=== PATIENT | male | born 1935 | race Two or more races ===

== ENCOUNTER 2020-11-13 22:17 | Emergency (ER) | payer OTHER, MEDICARE ==
[~2020-11-13] VITALS: Ht 172.7 cm; Wt 77.1 kg
[2020-11-13 22:17] VITALS: BP_SYST 195
--- NOTE | 2020-11-13 22:17 | NUR ---
Placed in room 02 . Placed on property assessment monitor, blood pressure machine and pulse oximeter. To gown for exam. Side rails up.
--- NOTE | 2020-11-13 22:18 | NUR ---
Patient present to ED BIB S[address] from home for hyperglycemia and hypertension sent by . Patient reports has not been taking his Diabetic or hypertension medications x 2 weeks. Reports having polyuria, polydipsia. Denies any blurred vision, headache, abdominal pain, nausea, vomiting, diarrhea, chest pain or shortness of breath. denies any pain at this time. AOx4 Addendum: 11/13/20 at 2310 by SDEDCJM Arrived with 18 G placed by EMS on LAC with 500 ml NS bolus given. No signs of infilitration. Initial Accucheck in ER is 460.
--- NOTE | 2020-11-13 23:01 | NUR ---
ER at bedside examining patient.
[2020-11-13] MEDS ORDERED: ENALAPRILAT DIHYDRATE 1.25 MG/ML VIAL IVP ONE (23:15)
[2020-11-13] MEDS ORDERED: NACL 0.9% 1,000 ML IV ONE (23:15)
[2020-11-13 23:43] LABS: BASOPHILS # (AUTO) 0.1 K/uL (0.0-0.2); BASOPHILS % (AUTO) 1.4 % (0.0-2.0); EOSINOPHILS # (AUTO) 0.4 K/uL (0.0-0.4); EOSINOPHILS % (AUTO) 6.4 % (0.0-4.0); HEMATOCRIT 39.1 % (36-54); HEMOGLOBIN 12.7 g/dL (14.0-18.0); LYMPHOCYTES # (AUTO) 1.4 K/uL (1.0-5.5); LYMPHOCYTES % (AUTO) 23.7 % (20.5-51.5); MEAN CORPUSCULAR HEMOGLOBIN 29 pg (27-31); MEAN CORPUSCULAR HGB CONC 33 % (32-36); MEAN CORPUSCULAR VOLUME 90 fL (79.0-98.0); MONOCYTES # (AUTO) 0.5 K/uL (0.0-1.0); MONOCYTES % (AUTO) 8.3 % (1.7-9.3); NEUTROPHILS # (AUTO) 3.5 K/uL (1.8-7.7); NEUTROPHILS % (AUTO) 60.2 % (40.0-70.0); PLATELET COUNT (AUTO) 292 K/uL (130-430); RED BLOOD CELL COUNT(AUTO) 4.35 MIL/uL (4.2-6.2); RED CELL DISTRIBUTION WIDTH 14.4 % (9.0-15.0); WHITE BLOOD COUNT (AUTO) 5.9 K/uL (4.8-10.8)
--- NOTE | 2020-11-14 00:04 | NUR ---
notified patient's bp 211/113. New orders received and carried out. Patient tolerated well. Will continue to monitor.
[2020-11-14 00:19] LABS: BILIRUBIN,URINE NEGATIVE (NEGATIVE); CLARITY/URINE CLEAR (CLEAR); COLOR,URINE YELLOW (YELLOW); GLUCOSE,URINE 3+ (NEGATIVE); KETONES,URINE 1+ (NEGATIVE); LEUKOCYTE ESTERASE ,URINE NEGATIVE (NEGATIVE); NITRITE, URINE NEGATIVE (NEGATIVE); PH,URINE 6.5 (5.0-8.0); PROTEIN URINE TRACE (NEGATIVE); UROBILINOGEN,URINE 0.2 (0.2-1.0)
[2020-11-14 00:22] LABS: ANION GAP 7 (5-15); CALCIUM 8.5 mg/dL (8.4-11.0); CHLORIDE 97 mmol/L (98-107); CREATININE 1.06 mg/dL (0.55-1.30); SODIUM SERUM 132 mmol/L (136-145); UREA NITROGEN, BLOOD 19 mg/dL (8-21)
[2020-11-14 00:27] LABS: ALANINE AMINOTRANSFERASE 29 U/L (12-78); ASPARTATE AMINOTRANSFERASE 20 U/L (10-37); TOTAL BILIRUBIN 0.3 mg/dL (0.0-1.0)
[2020-11-14] MEDS ORDERED: hydrALAZINE HCL 20 MG/ML VIAL IVP ONE (00:30)
[2020-11-14 00:31] LABS: BLOOD, URINE TRACE (NEGATIVE)
[2020-11-14 00:33] LABS: GLUCOSE 442 mg/dL (70-99)
[2020-11-14 01:01] LABS: BACTERIA,URINE FEW /HPF (None Seen); WBC,URINE 0-3 /HPF (0-3)
--- NOTE | 2020-11-14 01:06 | NUR ---
Patient resting quietly. No acute distress noted. Vital signs within normal range.
[2020-11-14] MEDS ORDERED: INSULIN REGULAR, HUMAN 10 UNITS/0.1 ML INJ IVP ONE (01:15)
[2020-11-14] MEDS ORDERED: INSULIN REGULAR, HUMAN 10 UNITS/0.1 ML INJ ONE (01:21)
[2020-11-14] MEDS ORDERED: CLON-433 PO (02:17)
[2020-11-14] MEDS ORDERED: LISI40TA13 PO (02:17)
--- NOTE | 2020-11-14 02:18 | NUR ---
at bedside. VSS. Patient awaiting discharge.
[2020-11-14 02:32] VITALS: BP_SYST 165
--- NOTE | 2020-11-14 02:32 | NUR ---
Patient given written and verbal discharge instructions and verbalizes understanding. ER MD discussed with patient the results and treatment provided. Patient in stable condition. ID arm band removed. IV catheter removed intact and dressing applied, no active bleeding. Rx of Clonidine and lisinopril given. Patient educated on pain management and to follow up with PMD. Pain Scale 0/10 Opportunity for questions provided and answered. Medication side effect fact sheet provided.
== END 2020-11-14 02:32 | disposition home or self-care (01) ==
LOC: SED 22:17
DX: E11.65 Type 2 diabetes mellitus with hyperglycemia (principal); I10 Essential (primary) hypertension
CPT/HCPCS: 36415; 80053; 81000; 82962; 85025; 93005; 96361; 96374; 96375; 99285; J0360; J1815; J7030

== ENCOUNTER 2022-03-05 09:19 | Outpatient (CLI) | payer OTHER, MEDICARE ==
[~2022-03-05 09:19] MED LIST: CLON-433 PO; LISI40TA13 PO
== END 2022-03-05 16:29 | disposition home or self-care (01) ==
LOC: SRD 09:19
PROVIDERS: ATTEND Family Medicine
DX: A15.8 Other respiratory tuberculosis (principal)
CPT/HCPCS: 71046-TC

== ENCOUNTER 2022-05-03 18:14 | Inpatient (IN) | payer OTHER, MEDICARE ==
[~2022-05-03] VITALS: Ht 160 cm; Wt 65.8 kg
[2022-05-03 18:30] VITALS: BP_SYST 142
[2022-05-03] MEDS ORDERED: NACL 0.9% 1,000 ML IV ONE ×2 (19:45→20:30)
[2022-05-03 19:47] LABS: BASOPHILS # (AUTO) 0.1 K/uL (0.0-0.2); BASOPHILS % (AUTO) 1.3 % (0.0-2.0); EOSINOPHILS # (AUTO) 0.2 K/uL (0.0-0.4); EOSINOPHILS % (AUTO) 4.7 % (0.0-4.0); HEMATOCRIT 38.5 % (36-54); HEMOGLOBIN 12.9 g/dL (14.0-18.0); LYMPHOCYTES % (AUTO) 23.7 % (20.5-51.5); MEAN CORPUSCULAR HEMOGLOBIN 31 pg (27-31); MEAN CORPUSCULAR HGB CONC 34 % (32-36); MEAN CORPUSCULAR VOLUME 92 fL (79.0-98.0); MONOCYTES # (AUTO) 0.3 K/uL (0.0-1.0); MONOCYTES % (AUTO) 7.6 % (1.7-9.3); NEUTROPHILS # (AUTO) 2.8 K/uL (1.8-7.7); NEUTROPHILS % (AUTO) 62.7 % (40.0-70.0); PLATELET COUNT (AUTO) 316 K/uL (130-430); RED BLOOD CELL COUNT(AUTO) 4.21 MIL/uL (4.2-6.2); RED CELL DISTRIBUTION WIDTH 13.9 % (9.0-15.0); WHITE BLOOD COUNT (AUTO) 4.4 K/uL (4.8-10.8)
[2022-05-03 20:10] LABS: ANION GAP 6 (5-15); CHLORIDE 95 mmol/L (98-107); CREATININE 1.19 mg/dL (0.55-1.30); UREA NITROGEN, BLOOD 26 mg/dL (8-21)
[2022-05-03 20:13] LABS: GLUCOSE 605 mg/dL (70-99)
[2022-05-03 20:14] LABS: ACETONE, SERUM NEGATIVE (NEGATIVE)
--- NOTE | 2022-05-03 20:19 | NUR ---
pt is here becuase his the is concerned that pt blood pressure is high in 170/89 at home on thrusday and acc showed at home 509. When pt is here at the er the acc is 605. pt is confused and incontineince. at the bedside.
--- NOTE | 2022-05-03 20:19 | NUR ---
Accucheck: 607
--- NOTE | 2022-05-03 20:29 | NUR ---
COVID SAMPLE COLLECTED AND SENT TO LAB
[2022-05-03] MEDS ORDERED: INSULIN REGULAR, HUMAN 10 UNITS/0.1 ML, 3 ML VIAL IVP ONE (20:30)
[2022-05-03] MEDS ORDERED: INSU100I26 SQ (20:32)
[2022-05-03 20:33] LABS: TOTAL BILIRUBIN 0.5 mg/dL (0.0-1.0)
[2022-05-03] MEDS ORDERED: CYAN100T44 PO (20:33)
[2022-05-03] MEDS ORDERED: NOR10 PO (20:33)
[2022-05-03] MEDS ORDERED: LIP40 PO (20:33)
[2022-05-03] MEDS ORDERED: LISI40TA13 PO (20:33)
[2022-05-03] MEDS ORDERED: GLIM4TAB37 PO (20:33)
[2022-05-03 20:34] LABS: ALANINE AMINOTRANSFERASE 58 U/L (12-78); ALBUMIN 3.5 g/dL (3.4-4.8); ASPARTATE AMINOTRANSFERASE 25 U/L (10-37)
[2022-05-03 20:35] LABS: LIPASE 54 U/L (73-393)
[2022-05-03 20:40] LABS: BILIRUBIN,URINE NEGATIVE (NEGATIVE); CLARITY/URINE CLEAR (CLEAR); COLOR,URINE YELLOW (YELLOW); GLUCOSE,URINE 3+ (NEGATIVE); KETONES,URINE NEGATIVE (NEGATIVE); LEUKOCYTE ESTERASE ,URINE NEGATIVE (NEGATIVE); NITRITE, URINE NEGATIVE (NEGATIVE); PROTEIN URINE TRACE (NEGATIVE); UROBILINOGEN,URINE 0.2 (0.2-1.0)
[2022-05-03 20:56] LABS: BLOOD, URINE TRACE (NEGATIVE)
[2022-05-03 20:57] LABS: BACTERIA,URINE FEW /HPF (None Seen); MUCUS,URINE None Seen /LPF (None Seen); RBC,URINE 0-3 /HPF (0-3); WBC,URINE 0-3 /HPF (0-3)
--- NOTE | 2022-05-04 | NUR ---
patient blood sugar is 182
--- NOTE | 2022-05-04 00:06 | NUR ---
Admit bed requested Patient will be admitted to care of Dr. OLIVEROS. Admitted to MED SURG unit. Diagnosis DIABETIC AND GENERALIZED WEAKNESS Inpatient (Yes or No) YES Observation (Yes or No) N Orientation concerns or request close to nursing station (Yes or No) N Covid Status NEGATIVE On vent or bipap N Isolation requirements N Needs a sitter N From Home (Yes or if No enter name of facility) HOME Requires Dialysis (Yes or No) N Med Rec Completed (Yes of No) Y
[2022-05-04 01:10] VITALS: BP_SYST 144
--- NOTE | 2022-05-04 01:10 | NUR ---
RECEIVED PATIENT TO ROOM 112, BED B, FROM EMERGENCY ROOM VIA GURNEY, ESCORTED BY DOWNSTREAM BIOMANUFACTURING TECHNICIAN. RECEIVED REPORT, ASSUMED CARE, AND STARTED ASSESSMENT.
--- NOTE | 2022-05-04 02:02 | NUR ---
Patient will be admitted to care of [facility] . Admitted to tele unit. Will go to room 112. Belongings list completed. Complete and up to date summary report printed. SBAR report to be given at bedside with opportunity for questions.
--- NOTE | 2022-05-04 07:28 | NUR ---
REPORT GIVEN TO RAVI MAYS, CARE, AND CARE WAS TURNED OVER TO HER.
[2022-05-04] MEDS: amLODIPine BESYLATE 10 MG TABLET PO SCH (10:09)
[2022-05-04] MEDS: lisinopriL 20 MG TABLET PO SCH (10:10)
[2022-05-04] MEDS: GLIMEPIRIDE 2 MG TABLET PO SCH (10:12)
[2022-05-04 11:08] VITALS: BP_SYST 135
--- NOTE | 2022-05-04 11:11 | NUR ---
CONSULTATION: REASON FOR CONSULT: HYPERTENSION CONSULTING PHYSICIAN: Harish OLIVEROS ORDERED BY: Dominic OLIVEROS SPOKE WITH KAYLIN MISHRA AND IS AWARE OF CONSULT.
--- NOTE | 2022-05-04 11:40 | NUR ---
resumed care after drift miner Denia Garcias sent home mid-shift. pt alert, oriented x3 at this time, no distress. ambulating with steady gait in room at bedside. denies pain, denies sob.skin warm and dry. call light in reach. room across from nursing station. vitals stable.
--- NOTE | 2022-05-04 11:42 | NUR ---
PATIENT RECEIVED RESTING IN BED IN NO APPARENT DISTRESS OR DISCOMFORT. ABLE TO MAKE NEEDS KNOWN. COMPLIANT WITH TAKING ALL MEDS. NO C/O ANY PAIN, NO CHEST PAIN, NO ABD PAIN NO SOB AT THIS TIME. CONTINUE TO MONITOR AND OBSERVE. CONTINUE WITH PRESENT CARE AND ORDERS PER MD . TOO ACHIEVE EXPECTED GOALS AND OUTCOMES.
--- NOTE | 2022-05-04 12:25 | NUR ---
CM noted order for DC plan for SNF. Spoke with pt Tom who is requesting for SNF placement in [facility]. Pt is agreeable for SNF. will send out referral packets Addendum: 05/04/22 at 1236 by Jessie Joseph RN patient states she doesnt need a walker for her as he already has one
--- NOTE | 2022-05-04 12:36 | NUR ---
CM faxed DC planning referral to [facility]#[phone]. will follow up
[2022-05-04] MEDS ORDERED: METOPROLOL SUCCINATE 25 MG TAB.SR.24H (TOPROL XL) PO ONE (15:00)
[2022-05-04] MEDS: INSULIN REGULAR, HUMAN 100 UNITS/ML, 3 ML VIAL (humuLIN R) SUBCUT PRN ×2 (15:44→20:41)
[2022-05-04 16:00] VITALS: BP_SYST 138
--- NOTE | 2022-05-04 19:30 | NUR ---
OPENING NOTE PT LYING IN BED AND EYES CLOSED. BREATHING EVEN AND NONLABORED. NO S/S OF DISTRESS OR PAIN REPORTED. SAFETY CHECKS IN PLACE. CALL LIGHT IN REACH.
[2022-05-04 20:00] VITALS: BP_SYST 154
[2022-05-04] MEDS: ATORVASTATIN 20 MG TABLET PO SCH (20:39)
[2022-05-04] MEDS: INSULIN GLARGINE 100 UNITS/ML, 10 ML VIAL SUBCUT SCH (20:40)
[2022-05-04 22:29] VITALS: BP_SYST 154
--- NOTE | 2022-05-04 23:46 | NUR ---
PT REFUSED GLUCOSE CHECK PT LYING IN BED. REFUSED GLUCOSE CHECK. BREATHING EVEN AND NONLABORED. NO S/S OF ACUTE DISTRESS OR PAIN. SAFETY CHECKS IN PLACE. CALL LIGHT IN REACH. CONTINUE TO MONITOR
[2022-05-05 00:36] VITALS: BP_SYST 154
--- NOTE | 2022-05-05 01:45 | NUR ---
ROUNDING NOTE PT FOUND AT RESTROOM. URINATED AND WALKED BACK TO HIS BED WITH WALKER. BED LINENS AND GOWN CHANGED. SAFETY CHECKS IN PLACE. BED LOWEST POSITION. CALL LIGHT IN REACH. CONTINUE TO MONITOR
[2022-05-05 05:41] LABS: BASOPHILS % (AUTO) 0.8 % (0.0-2.0); EOSINOPHILS # (AUTO) 0.4 K/uL (0.0-0.4); EOSINOPHILS % (AUTO) 7.7 % (0.0-4.0); HEMATOCRIT 38.3 % (36-54); HEMOGLOBIN 12.9 g/dL (14.0-18.0); LYMPHOCYTES # (AUTO) 2.3 K/uL (1.0-5.5); LYMPHOCYTES % (AUTO) 40.4 % (20.5-51.5); MEAN CORPUSCULAR HEMOGLOBIN 30 pg (27-31); MEAN CORPUSCULAR HGB CONC 34 % (32-36); MEAN CORPUSCULAR VOLUME 89 fL (79.0-98.0); MONOCYTES # (AUTO) 0.5 K/uL (0.0-1.0); MONOCYTES % (AUTO) 9.3 % (1.7-9.3); NEUTROPHILS # (AUTO) 2.3 K/uL (1.8-7.7); NEUTROPHILS % (AUTO) 41.8 % (40.0-70.0); PLATELET COUNT (AUTO) 348 K/uL (130-430); RED CELL DISTRIBUTION WIDTH 13.8 % (9.0-15.0); WHITE BLOOD COUNT (AUTO) 5.6 K/uL (4.8-10.8)
[2022-05-05 05:48] LABS: ANION GAP 10 (5-15); CALCIUM 8.9 mg/dL (8.4-11.0); CHLORIDE 103 mmol/L (98-107); CREATININE 0.94 mg/dL (0.55-1.30); GLUCOSE 103 mg/dL (70-99); THYROID STIMULATING HORMONE 1.36 uIu/mL (0.34-4.82); UREA NITROGEN, BLOOD 21 mg/dL (8-21)
--- NOTE | 2022-05-05 07:26 | NUR ---
CLOSING NOTE PT LYING IN BED AND EYES CLOSED. BREATHING EVEN AND NONLABORED. NO S/S OF DISTRESS OR PAIN REPORTED. SAFETY CHECKS IN PLACE. CALL LIGHT IN REACH. ENDORSED TO DAY SHIFT NURSE
[2022-05-05 08:00] VITALS: BP_SYST 138
[2022-05-05] MEDS: GLIMEPIRIDE 2 MG TABLET PO SCH (08:56)
[2022-05-05] MEDS: METOPROLOL SUCCINATE 25 MG TAB.SR.24H (TOPROL XL) PO SCH (08:56)
[2022-05-05] MEDS: lisinopriL 20 MG TABLET PO SCH (08:57)
[2022-05-05] MEDS: amLODIPine BESYLATE 10 MG TABLET PO SCH (08:57)
--- NOTE | 2022-05-05 10:00 | NUR ---
Patient accepted at [facility]. room 114. updated.
--- NOTE | 2022-05-05 11:06 | NUR ---
CONSULTATION PAGED REASON FOR CONSULTATION: NEW ONSET URINARY INCONTNENCE WAS CONSULT CALLED? Y PERSON WHO WAS NOTIFIED: ANTONIO CONSULTING PHYSICIAN: RULA MELTON MANUFACTURING MAINTENANCE TECHNICIAN SPECIALTY: UROLOGY MANUFACTURING MAINTENANCE TECHNICIAN PHONE NUMBER: [phone] REQUESTING PHYSICIAN: HERMELINDA KATZ
[2022-05-05] MEDS: INSULIN REGULAR, HUMAN 100 UNITS/ML, 3 ML VIAL (humuLIN R) SUBCUT PRN ×2 (11:20→17:38)
[2022-05-05] MEDS: INSULIN GLARGINE 100 UNITS/ML, 10 ML VIAL SUBCUT SCH ×2 (11:22→21:27)
[2022-05-05 11:27] VITALS: BP_SYST 124
--- NOTE | 2022-05-05 12:58 | NUR ---
Dietitian Recommendations * Ordered low CHO (45g) CCHO diet * Encourage good PO intake * Consider continuing to monitor POC BG GS, MPH, RD Please refer to RD Assessment for further details. Thanks! Addendum: 05/05/22 at [address] Amended: Links added.
--- NOTE | 2022-05-05 13:48 | NUR ---
PHYSICAL THERAPY CO-SIGN The Physical Therapy Progress Notes documented by Head Cd Reactor Operator have been reviewed. Reviewed/Co-Signed by: Jaydon Turcios Documentation Done by:ASHANTI HUNT Addendum: 05/05/22 at 1348 by Jaydon Turcios PT Amended: Links added.
[2022-05-05 15:21] VITALS: BP_SYST 126
--- NOTE | 2022-05-05 16:23 | NUR ---
Spoke with Dr Dominic Jack. patient ok DC to SNF today. Patient to go to [facility] room 114. [facility] ETA 6pm. will let RN know to call Dr Jack for discharge order. will place packet on unit with facility and transport details
[2022-05-05] MEDS ORDERED: INSU100V9 SUBCUT ×2 (16:45)
[2022-05-05] MEDS ORDERED: METO-540 PO (16:45)
--- NOTE | 2022-05-05 17:09 | NUR ---
PAGED DR. OLIVEROSA
--- NOTE | 2022-05-05 17:10 | NUR ---
spoke with at bedside who states PABLITO Roman told her pt would stay over night and they would meet to discuss snf placement at 0800 tomorrow. not comfortable with dc to [facility] as she has not seen it nor looked it up online and dc pickup is scheduled for 1800 today. pt's blood sugar labile with result [address] marin
--- NOTE | 2022-05-05 17:36 | NUR ---
spoke with dr marin who states ok to cancel dc today. called and cancelled hot die picker with [facility]
--- NOTE | 2022-05-05 18:21 | NUR ---
spoke with pt's physician Dr Luo. notified of pt's hgbA1c result 11.3 states pt should not have been considered for discharge due to blood sugar out of control states she is in contact with Dr Jack. aware that consult was sent for urology with Dr Wilde and pt seen by fuel distribution system operator Dr Holloway
[2022-05-05] MEDS: ATORVASTATIN 20 MG TABLET PO SCH (21:14)
[2022-05-06] VITALS (7 sets, daily range): BP systolic 103–148
[2022-05-06] MEDS: INSULIN REGULAR, HUMAN 100 UNITS/ML, 3 ML VIAL (humuLIN R) SUBCUT PRN ×3 (06:41→16:50)
--- NOTE | 2022-05-06 07:03 | NUR ---
closing notes pt is resting in a low bed position with call light within pts reach
--- NOTE | 2022-05-06 08:00 | NUR ---
Received patient in bed A/Ox2, respiration even and unlabored, no signs of distress, IV to right forearm patent. Maintain safety precaution, bed in low position
--- NOTE | 2022-05-06 08:32 | NUR ---
CM spoke with in person this morning regarding discharge hold yesterday. states she is ok with [facility]. CM gave her a list of options for SNF in case she doesnt like [facility]. says she is ok for her to discharge today if he is ready. CM gave her a booklet of community resources for finding extra care for her after he goes home from the SNF.
--- NOTE | 2022-05-06 08:35 | NUR ---
Transportation for discharge set up with [facility] [phone]. ETA 1;00 pm today. Will speak to patient RN regarding patient discharge
[2022-05-06] MEDS: GLIMEPIRIDE 2 MG TABLET PO SCH (08:59)
[2022-05-06] MEDS: lisinopriL 20 MG TABLET PO SCH (09:01)
[2022-05-06] MEDS: amLODIPine BESYLATE 10 MG TABLET PO SCH (09:02)
[2022-05-06] MEDS: METOPROLOL SUCCINATE 25 MG TAB.SR.24H (TOPROL XL) PO SCH (09:02)
[2022-05-06] MEDS: INSULIN GLARGINE 100 UNITS/ML, 10 ML VIAL SUBCUT SCH ×2 (09:07→21:00)
--- NOTE | 2022-05-06 10:45 | NUR ---
Neww IV saline lock to left forearm #22g
--- NOTE | 2022-05-06 11:10 | NUR ---
Spoke with Masood Marley, increase Lantus to 15units BID
--- NOTE | 2022-05-06 11:20 | NUR ---
Transportation with [facility] ETA rescheduled for 6pm today. Pt blood sugars unstable. Spoke with pt RAVI Mann to call success coach for diabetic medication adjustments.
--- NOTE | 2022-05-06 11:55 | NUR ---
PHYSICAL THERAPY CO-SIGN The Physical Therapy Progress Notes documented by [employer] Department Head have been reviewed. Reviewed/Co-Signed by: Jaydon Turcios Documentation Done by:ASHANTI HUNT Addendum: 05/06/22 at 1155 by Jaydon Turcios PT Amended: Links added.
[2022-05-06 12:06] LABS: EOSINOPHILS # (AUTO) 0.3 K/uL (0.0-0.4); EOSINOPHILS % (AUTO) 5.7 % (0.0-4.0); HEMATOCRIT 35.7 % (36-54); HEMOGLOBIN 11.9 g/dL (14.0-18.0); LYMPHOCYTES # (AUTO) 1.1 K/uL (1.0-5.5); LYMPHOCYTES % (AUTO) 22.9 % (20.5-51.5); MEAN CORPUSCULAR HEMOGLOBIN 30 pg (27-31); MEAN CORPUSCULAR HGB CONC 33 % (32-36); MEAN CORPUSCULAR VOLUME 91 fL (79.0-98.0); MONOCYTES # (AUTO) 0.4 K/uL (0.0-1.0); MONOCYTES % (AUTO) 7.9 % (1.7-9.3); NEUTROPHILS # (AUTO) 2.9 K/uL (1.8-7.7); NEUTROPHILS % (AUTO) 62.5 % (40.0-70.0); PLATELET COUNT (AUTO) 274 K/uL (130-430); RED BLOOD CELL COUNT(AUTO) 3.95 MIL/uL (4.2-6.2); RED CELL DISTRIBUTION WIDTH 13.9 % (9.0-15.0); WHITE BLOOD COUNT (AUTO) 4.7 K/uL (4.8-10.8)
[2022-05-06 12:11] LABS: ANION GAP 6 (5-15); CALCIUM 8.2 mg/dL (8.4-11.0); CHLORIDE 97 mmol/L (98-107); CREATININE 1.27 mg/dL (0.55-1.30); UREA NITROGEN, BLOOD 26 mg/dL (8-21)
[2022-05-06 12:16] LABS: GLUCOSE 507 mg/dL (70-99)
[2022-05-06] MEDS ORDERED: INSULIN NPH 100 UNITS/ML 10 ML VIAL SUBCUT ONE (12:45)
--- NOTE | 2022-05-06 15:05 | NUR ---
Patient Tom called CM to state that she does not feel comfortable discharging patient tonight. She is aware of patient blood sugars still not stable. will let RN know
[2022-05-06] MEDS: INSULIN Lispro 100 UNITS/ML, 3 ML VIAL (humaLOG) SUBCUT SCH ×2 (16:56→21:00)
--- NOTE | 2022-05-06 16:56 | NUR ---
dr marin spoke with and updatedhisofy of patient blood sugars. received order to hold discharge Addendum: 05/06/22 at 1659 by Debby Amador RN Iman roach
--- NOTE | 2022-05-06 19:00 | NUR ---
Patient in stable condition, continue to stabilizes blood glucose, maintain safety throughout shift, will endorse
--- NOTE | 2022-05-06 21:07 | NUR ---
BG 51MG/dL, JUICE GIVEN WILL RECHECK RECEIVED PT SITTING AT EDGE OF BED, NO DISTRESS NOTED, DENIES PAIN. AAOX3, O2 SAT 98% ON RA, LUNG SOUNDS DIMINISHED, IV TO LT FA SITE CDI. EDEMA NOTED TO BLE. Addendum: 05/06/22 at 2329 by Dave Heller RN RN 2130: BG 89MG/dL Addendum: 05/07/22 at 0637 by Dave Heller RN RN 0600: BG 50MG/dL GAVE JUICE 0630: BG 118MG/dL
[2022-05-06] MEDS: ATORVASTATIN 20 MG TABLET PO SCH (21:21)
[2022-05-07 00:20] VITALS: BP_SYST 129
[2022-05-07] MEDS: INSULIN Lispro 100 UNITS/ML, 3 ML VIAL (humaLOG) SUBCUT SCH ×3 (06:35→17:33)
--- NOTE | 2022-05-07 07:30 | NUR ---
RN OPENING NOTE REPORT WAS ENDORSED BY NIGHT NURSE. PATIENT IS AWAKE AND ALERT WALKED TO BATHROOM AND BACK TO BED. IS NOW EATING BREAKFAST. PATIENT EDUCATED LPN INSTRUCTOR LIGHT FOR ASSISTANCE. CALL LIGHT IS WITH HIM NO OTHER NEEDS AT THIS TIME.
[2022-05-07 08:00] VITALS: BP_SYST 147
[2022-05-07 08:01] LABS: ALANINE AMINOTRANSFERASE 43 U/L (12-78); ANION GAP 5 (5-15); ASPARTATE AMINOTRANSFERASE 24 U/L (10-37); BASOPHILS # (AUTO) 0.1 K/uL (0.0-0.2); BASOPHILS % (AUTO) 1.1 % (0.0-2.0); CALCIUM 8.8 mg/dL (8.4-11.0); CHLORIDE 102 mmol/L (98-107); CREATININE 1.06 mg/dL (0.55-1.30); EOSINOPHILS # (AUTO) 0.4 K/uL (0.0-0.4); EOSINOPHILS % (AUTO) 7.7 % (0.0-4.0); GLUCOSE 118 mg/dL (70-99); HEMATOCRIT 36.6 % (36-54); HEMOGLOBIN 12.1 g/dL (14.0-18.0); LYMPHOCYTES # (AUTO) 1.5 K/uL (1.0-5.5); LYMPHOCYTES % (AUTO) 28.4 % (20.5-51.5); MEAN CORPUSCULAR HEMOGLOBIN 30 pg (27-31); MEAN CORPUSCULAR HGB CONC 33 % (32-36); MEAN CORPUSCULAR VOLUME 90 fL (79.0-98.0); MONOCYTES # (AUTO) 0.5 K/uL (0.0-1.0); MONOCYTES % (AUTO) 8.9 % (1.7-9.3); NEUTROPHILS # (AUTO) 2.9 K/uL (1.8-7.7); NEUTROPHILS % (AUTO) 53.9 % (40.0-70.0); PLATELET COUNT (AUTO) 293 K/uL (130-430); RED BLOOD CELL COUNT(AUTO) 4.09 MIL/uL (4.2-6.2); RED CELL DISTRIBUTION WIDTH 14.2 % (9.0-15.0); TOTAL BILIRUBIN 0.5 mg/dL (0.0-1.0); UREA NITROGEN, BLOOD 25 mg/dL (8-21); WHITE BLOOD COUNT (AUTO) 5.4 K/uL (4.8-10.8)
[2022-05-07] MEDS: INSULIN GLARGINE 100 UNITS/ML, 10 ML VIAL SUBCUT SCH (09:00)
[2022-05-07] MEDS: METOPROLOL SUCCINATE 25 MG TAB.SR.24H (TOPROL XL) PO SCH (09:55)
[2022-05-07] MEDS: lisinopriL 20 MG TABLET PO SCH (09:55)
[2022-05-07] MEDS: GLIMEPIRIDE 2 MG TABLET PO SCH (09:56)
[2022-05-07] MEDS: amLODIPine BESYLATE 10 MG TABLET PO SCH (09:56)
--- NOTE | 2022-05-07 09:57 | NUR ---
MEDICATION Addendum: 05/07/22 at 1042 by Bonnie Alonso RN PATIENTS SCHEDULED MEDICATION GIVEN PER ORDER. PATIENT TOLERATED WELL. INSULIN HELD DUE TO LOW BLOOD SUGAR LAST NIGHT. PATIENT SHOWS NO SIGNS OF ANY DISTRESS. BREATHING IS EQUAL AND NON LABORED. ALL SAFETY PRECAUTIONS IN PLACE. EDUCATED LOOM WINDER TENDER LIGHT FOR ASSISTANCE. CALL LIGHT IS WITH HIM. PATIENT IS CLOSE TO NURSES STATION.
[2022-05-07 11:26] VITALS: BP_SYST 133
[2022-05-07] MEDS: INSULIN REGULAR, HUMAN 100 UNITS/ML, 3 ML VIAL (humuLIN R) SUBCUT PRN (12:15)
--- NOTE | 2022-05-07 12:17 | NUR ---
ACCU CHECK PATIENTS ACCU CHECK DONE. COVERAGE GIVEN ORDER. GINNA OLIVEROS. PATIENT IS EATING LUNCH Addendum: 05/07/22 at 1904 by Bonnie Alonso RN dr. oliveros made aware to see patient
[2022-05-07] MEDS ORDERED: INSULIN NPH 100 UNITS/ML 10 ML VIAL SUBCUT ONE (15:00)
[2022-05-07 15:24] VITALS: BP_SYST 101
[2022-05-07] MEDS ORDERED: INSULIN Lispro 100 UNITS/ML, 3 ML VIAL (humaLOG) SUBCUT ONE (15:30)
--- NOTE | 2022-05-07 15:38 | NUR ---
insulin Addendum: 05/07/22 at 1903 by Bonnie Alonso RN dr. valle at nurses station reassessed blood sugar and order insulin, given as ordered.
--- NOTE | 2022-05-07 15:44 | NUR ---
PHYSICAL THERAPY CO-SIGN The Physical Therapy Progress Notes documented by Cut Off Tender Glass have been reviewed. Reviewed/Co-Signed by: Jaydon Turcios Documentation Done by:ASHANTI HUNT Addendum: 05/07/22 at 1544 by Jaydon Turcios PT Amended: Links added.
--- NOTE | 2022-05-07 16:21 | NUR ---
PT TO BE DISCHARGED TO [facility] PHONE # [phone]. [facility] IS ON WILL CALL STATUS PHONE #[phone]
[2022-05-07] MEDS: INSULIN LISPRO SLIDING SCALE 100 UNITS/ML, 3 ML VIAL (humaLOG) SUBCUT PRN ×2 (17:35→22:36)
--- NOTE | 2022-05-07 17:37 | NUR ---
Accu check/ insulin/ Dr. Valle patients Accu check done was elevated called and spoke with Dr. valle recieved orders for bmp to go ahead and given insulin coverage as directed. patient is sitting up eating dinner after accuc check was done. patient shows no signs of any distress, breathing is equal and non labored. patient is close to nurse station. patient educated distribution warehouse manager light for assistance. no other needs at this time.
[2022-05-07 18:58] LABS: ANION GAP 7 (5-15); CALCIUM 8.9 mg/dL (8.4-11.0); CHLORIDE 95 mmol/L (98-107); UREA NITROGEN, BLOOD 32 mg/dL (8-21)
--- NOTE | 2022-05-07 19:01 | NUR ---
rn closing note bmp is still pending. patient is awake and alert sitting in bed, patient ate his dinner. spouse is at bedside. patient shows no signs of any distress, breathing is equal and non labored. all safety precautions in place. call light is with him. patient is close to nurses station. Addendum: 05/07/22 at 1930 by Bonnie Alonso RN ENDORSED REPORT TO NIGHT NURSE LUCIO INFORMED OF GLUCOSE PAGED .
[2022-05-07 19:08] LABS: GLUCOSE 400 mg/dL (70-99)
[2022-05-07 20:00] VITALS: BP_SYST 147
[2022-05-07] MEDS ORDERED: INSULIN GLARGINE 100 UNITS/ML, 10 ML VIAL SUBCUT SCH (21:00)
[2022-05-07] MEDS: ATORVASTATIN 20 MG TABLET PO SCH (22:28)
[2022-05-08 00:40] VITALS: BP_SYST 103
--- NOTE | 2022-05-08 02:22 | NUR ---
PATIENT CURRENTLY IN BED RESTING, EYES CLOSED, NO S/S OF PAIN OR DISTRESS NOTED AT THIS TIME. PATIENT RECEIVED SHOWER DURING THIS SHIFT BY BIOPROCESSING MANUFACTURING TECHNICIAN, PATIENT TOLERATED WELL. PATIENT AMB WITH ASSIST. PATIENT C/O NO DURING THIS SHIFT. PATIENT TOOK ALL HS MEDS WITH NO DIFFICULTY, WILL CONTINUE TO MONITOR ELEVATED BS PER ORDER. PATIENT HAS BEEN COMPLIANT WITH ALL TX AND MEDICATION AT THIS TIME.
--- NOTE | 2022-05-08 05:16 | NUR ---
PATIENT AMB IN ROOM, BRP, INCONTINENT OF B&B, VSS, NO VERBALIZED OR S/S OF PAIN OR DISTRESS NOTED DURING THIS SHIFT. PATIENT WAS GIVEN A SHOWER EARLIER DURING THIS SHIFT BY HUMAN SERVICES PROGRAM SPECIALIST.
[2022-05-08] MEDS: INSULIN Lispro 100 UNITS/ML, 3 ML VIAL (humaLOG) SUBCUT SCH ×3 (06:23→18:12)
[2022-05-08] MEDS: INSULIN LISPRO SLIDING SCALE 100 UNITS/ML, 3 ML VIAL (humaLOG) SUBCUT PRN ×3 (06:24→20:42)
[2022-05-08 09:03] VITALS: BP_SYST 110
[2022-05-08] MEDS: GLIMEPIRIDE 2 MG TABLET PO SCH (09:54)
[2022-05-08] MEDS: METOPROLOL SUCCINATE 25 MG TAB.SR.24H (TOPROL XL) PO SCH (09:55)
[2022-05-08] MEDS: amLODIPine BESYLATE 10 MG TABLET PO SCH (09:56)
[2022-05-08] MEDS: lisinopriL 20 MG TABLET PO SCH (09:56)
[2022-05-08] MEDS: INSULIN GLARGINE 100 UNITS/ML, 10 ML VIAL SUBCUT SCH ×2 (09:58→20:40)
[2022-05-08 16:30] VITALS: BP_SYST 121
[2022-05-08 20:00] VITALS: BP_SYST 114
[2022-05-08] MEDS: ATORVASTATIN 20 MG TABLET PO SCH (20:12)
--- NOTE | 2022-05-08 20:30 | NUR ---
EDUCATED PT ON ACCU CHECKS. PT AGREED TO HAVE BS CHECKED. BS COVERED WITH INSULIN ORDERED
[2022-05-09] VITALS: BP_SYST 110
[2022-05-09] MEDS: INSULIN Lispro 100 UNITS/ML, 3 ML VIAL (humaLOG) SUBCUT SCH ×3 (06:31→17:15)
[2022-05-09 07:16] LABS: ANION GAP 4 (5-15); CALCIUM 9.2 mg/dL (8.4-11.0); CHLORIDE 104 mmol/L (98-107); CREATININE 1.02 mg/dL (0.55-1.30); GLUCOSE 89 mg/dL (70-99); UREA NITROGEN, BLOOD 19 mg/dL (8-21)
[2022-05-09 07:19] LABS: BASOPHILS # (AUTO) 0.1 K/uL (0.0-0.2); BASOPHILS % (AUTO) 1.2 % (0.0-2.0); EOSINOPHILS # (AUTO) 0.4 K/uL (0.0-0.4); EOSINOPHILS % (AUTO) 7.8 % (0.0-4.0); HEMATOCRIT 38.6 % (36-54); HEMOGLOBIN 12.9 g/dL (14.0-18.0); LYMPHOCYTES # (AUTO) 1.9 K/uL (1.0-5.5); LYMPHOCYTES % (AUTO) 34.4 % (20.5-51.5); MEAN CORPUSCULAR HEMOGLOBIN 30 pg (27-31); MEAN CORPUSCULAR HGB CONC 34 % (32-36); MEAN CORPUSCULAR VOLUME 91 fL (79.0-98.0); MONOCYTES # (AUTO) 0.5 K/uL (0.0-1.0); MONOCYTES % (AUTO) 9.9 % (1.7-9.3); NEUTROPHILS # (AUTO) 2.5 K/uL (1.8-7.7); NEUTROPHILS % (AUTO) 46.7 % (40.0-70.0); PLATELET COUNT (AUTO) 299 K/uL (130-430); RED BLOOD CELL COUNT(AUTO) 4.26 MIL/uL (4.2-6.2); RED CELL DISTRIBUTION WIDTH 14.1 % (9.0-15.0); WHITE BLOOD COUNT (AUTO) 5.4 K/uL (4.8-10.8)
[2022-05-09 08:00] VITALS: BP_SYST 122
[2022-05-09] MEDS: INSULIN LISPRO SLIDING SCALE 100 UNITS/ML, 3 ML VIAL (humaLOG) SUBCUT PRN ×3 (11:23→20:23)
[2022-05-09] MEDS: INSULIN GLARGINE 100 UNITS/ML, 10 ML VIAL SUBCUT SCH ×2 (11:24→20:19)
[2022-05-09 11:28] VITALS: BP_SYST 129
[2022-05-09] MEDS: GLIMEPIRIDE 2 MG TABLET PO SCH (11:30)
[2022-05-09] MEDS: amLODIPine BESYLATE 10 MG TABLET PO SCH (11:30)
[2022-05-09] MEDS: METOPROLOL SUCCINATE 25 MG TAB.SR.24H (TOPROL XL) PO SCH (11:30)
[2022-05-09] MEDS: lisinopriL 20 MG TABLET PO SCH (11:31)
[2022-05-09 16:00] VITALS: BP_SYST 118
[2022-05-09 20:00] VITALS: BP_SYST 106
[2022-05-09] MEDS: ATORVASTATIN 20 MG TABLET PO SCH (20:14)
[2022-05-10 00:17] VITALS: BP_SYST 116
[2022-05-10 06:26] LABS: BASOPHILS % (AUTO) 0.8 % (0.0-2.0); EOSINOPHILS # (AUTO) 0.4 K/uL (0.0-0.4); HEMATOCRIT 35.2 % (36-54); HEMOGLOBIN 11.9 g/dL (14.0-18.0); LYMPHOCYTES # (AUTO) 1.4 K/uL (1.0-5.5); LYMPHOCYTES % (AUTO) 26.9 % (20.5-51.5); MEAN CORPUSCULAR HEMOGLOBIN 30 pg (27-31); MEAN CORPUSCULAR HGB CONC 34 % (32-36); MEAN CORPUSCULAR VOLUME 90 fL (79.0-98.0); MONOCYTES # (AUTO) 0.5 K/uL (0.0-1.0); MONOCYTES % (AUTO) 9.5 % (1.7-9.3); NEUTROPHILS % (AUTO) 55.8 % (40.0-70.0); PLATELET COUNT (AUTO) 287 K/uL (130-430); RED CELL DISTRIBUTION WIDTH 13.9 % (9.0-15.0); WHITE BLOOD COUNT (AUTO) 5.4 K/uL (4.8-10.8)
--- NOTE | 2022-05-10 06:27 | NUR ---
pt bs at 76. humalog scheduled to be give 5-10 minutes before start of meal. will endorse insulin to day rn
[2022-05-10 06:47] LABS: ALANINE AMINOTRANSFERASE 58 U/L (12-78); ALBUMIN 3.1 g/dL (3.4-4.8); ANION GAP 5 (5-15); ASPARTATE AMINOTRANSFERASE 31 U/L (10-37); CALCIUM 8.8 mg/dL (8.4-11.0); CHLORIDE 104 mmol/L (98-107); CREATININE 1.18 mg/dL (0.55-1.30); GLUCOSE 80 mg/dL (70-99); TOTAL BILIRUBIN 0.5 mg/dL (0.0-1.0); UREA NITROGEN, BLOOD 20 mg/dL (8-21)
[2022-05-10 08:00] VITALS: BP_SYST 119
--- NOTE | 2022-05-10 10:00 | NUR ---
CM: Zander Barone: still have bed available # [phone], RN to report # [phone]. To dc once blood sugar is stabilized. Addendum: 05/10/22 at 1350 by Garett Jiménez RN sukhdev/michael Cho RN: Blood sugar is 244 at lunch. DCP to arrange the transportation.
[2022-05-10] MEDS ORDERED: INSU100V SUBCUT (10:18)
[2022-05-10] MEDS ORDERED: INSU100V9 SUBCUT (10:18)
[2022-05-10 11:29] VITALS: BP_SYST 105
[2022-05-10] MEDS: INSULIN GLARGINE 100 UNITS/ML, 10 ML VIAL SUBCUT SCH (12:28)
[2022-05-10] MEDS: GLIMEPIRIDE 2 MG TABLET PO SCH (12:31)
[2022-05-10] MEDS: lisinopriL 20 MG TABLET PO SCH (12:31)
[2022-05-10] MEDS: METOPROLOL SUCCINATE 25 MG TAB.SR.24H (TOPROL XL) PO SCH (12:32)
--- NOTE | 2022-05-10 14:55 | NUR ---
PHYSICAL THERAPY CO-SIGN The Physical Therapy Progress Notes documented by Baton Teacher have been reviewed. Reviewed/Co-Signed by: Jaydon Turcios Documentation Done by:GAMA WHITE Addendum: 05/10/22 at 1455 by Jaydon Turcios PT Amended: Links added.
--- NOTE | 2022-05-10 15:02 | NUR ---
PHYSICAL THERAPY CO-SIGN The Physical Therapy Progress Notes documented by Automotive Technology Instructor have been reviewed. Reviewed/Co-Signed by: Jaydon Turcios Documentation Done by:ASHANTI HNUT Addendum: 05/10/22 at 1503 by Jaydon Turcios PT Amended: Links added.
[2022-05-10 15:13] VITALS: BP_SYST 123
--- NOTE | 2022-05-10 16:58 | NUR ---
Patient d/c via non-emergent transport to snf in [place]. Vitals stable. Last blood sugar 241. Report given to RAVI Shabazz. Discharge instructions given to patient and , Marissa. Verbalized understanding. No complaints of pain, dizziness or shortness of breath.
== END 2022-05-10 16:58 | DRG 638 ==
LOC: SED 18:14 → SMU 21:33
PROVIDERS: ADMIT Preventive Medicine Preventive Medicine/Occupational Environmental Medicine; ATTEND Preventive Medicine Preventive Medicine/Occupational Environmental Medicine
DX: E11.65 Type 2 diabetes mellitus with hyperglycemia (principal); E87.1 Hypo-osmolality and hyponatremia; I10 Essential (primary) hypertension; Z79.899 Other long term (current) drug therapy; R62.7 Adult failure to thrive; E78.5 Hyperlipidemia, unspecified; E78.00 Pure hypercholesterolemia, unspecified; R53.82 Chronic fatigue, unspecified; N40.0 Benign prostatic hyperplasia without lower urinary tract symptoms; T46.1X5A Adverse effect of calcium-channel blockers, initial encounter; R32 Unspecified urinary incontinence; Z79.4 Long term (current) use of insulin; Z79.84 Long term (current) use of oral hypoglycemic drugs; Z86.16 Personal history of COVID-19; R60.0 Localized edema
CPT/HCPCS: 36415; 36600; 71045; 80048; 80053; 81000; 82009; 82803-TC; 82962; 83037; 83605; 83690; 83880; 83935; 84443; 84484; 85025; 87040; 87086; 93005; 93306; 96361; 96374; 97110-GP; 97116-GP; 97530-GP; 99285; J1815

== ENCOUNTER 2023-02-16 09:43 | Outpatient (CLI) | payer OTHER, MEDICARE ==
[~2023-02-16 09:43] MED LIST changes: -CLON-433 PO; +CYAN100T44 PO; +GLIM4TAB37 PO; +INSU100V SUBCUT; +INSU100V9 SUBCUT; +LIP40 PO; +METO-540 PO; +NOR10 PO; +[UNRECOGNIZED DRUG - CODE] PO
== END 2023-02-16 18:37 | disposition home or self-care (01) ==
LOC: SRD 09:43
PROVIDERS: ATTEND Family Medicine
DX: Z11.1 Encounter for screening for respiratory tuberculosis (principal)
CPT/HCPCS: 71046-TC